=== PATIENT | male | born 1980 | race Caucasian/White ===

== ENCOUNTER 2018-07-16 21:37 | Emergency (ER) | END 2018-07-16 22:51 | disposition left against medical advice (07) ==

== ENCOUNTER 2018-07-23 11:56 | Emergency (ER) | END 2018-07-23 13:07 | disposition home or self-care (01) ==

== ENCOUNTER 2018-07-28 13:40 | Emergency (ER) | END 2018-07-28 14:32 | disposition home or self-care (01) ==